=== PATIENT | male | born 1935 | race Caucasian/White ===

== ENCOUNTER 2024-01-14 15:30 | Emergency (ER) | payer MEDICARE, BC, SELFPAY ==
[2024-01-14 15:50] VITALS: BP 167/81; PULSE 73; RESP 18; TEMP 36.9; O2SAT 99; BMI 22.8
--- NOTE | 2024-01-14 16:00 | EDNOTE_ITS ---
ED General RME/HPI General Chief complaint: General Adult/Misc Complain Stated complaint: BLEEDING FROM FACIAL WOUND S/P SKIN CA REMOVAL Time Seen by Provider: 01/14/24 15:35 Arrival date/time: 01/14/24 15:30 88-year-old male presents to the emergency department today complaints of bleeding from biopsy site right cheek. Limitations: no limitations Related Data Home Medications ?Medication ?Instructions ?Recorded ?Confirmed metoprolol tartrate 100 mg tablet 100 mg PO QDAY 10/13/20 10/13/20 spironolactone 25 1 tab PO QDAY 10/13/20 10/13/20 mg-hydrochlorothiazide 25 mg tablet Previous Rx's ?Medication ?Instructions ?Recorded atorvastatin 20 mg tablet 40 mg (2 x 20 mg) PO QDAY #0 tabs 10/14/20 atorvastatin 40 mg tablet 40 mg PO QPM #30 tabs 10/14/20 clopidogrel 75 mg tablet (Plavix) 75 mg PO QDAY #30 tabs 10/14/20 olmesartan 40 mg tablet 20 mg (1/2 x 40 mg) PO QDAY #0 tabs 10/14/20 Allergies Allergy/AdvReac Type Severity Reaction Status Date / Time No Known Allergies Allergy Verified 01/14/24 15:34 Review of Systems Review of Systems Systems Reviewed: All systems reviewed, normal except as documented Constitutional Constitutional: Reports system reviewed and no additional complaints, except as documented, Denies fever(s) and Denies headache(s) Eyes Eyes: Reports system reviewed and no additional complaints, except as documented and Denies blurry vision ENT Ears, Nose, Mouth, and Throat: Reports system reviewed and no additional complaints, except as documented, Denies headache(s), Denies nasal congestion and Denies nasal discharge Cardiovascular Cardiovascular: Reports system reviewed and no additional complaints, except as documented, Denies chest pain and Denies dyspnea Respiratory Respiratory: Reports system reviewed and no additional complaints, except as documented, Denies chest congestion, Denies cough and Denies dyspnea Gastrointestinal Gastrointestinal: Reports system reviewed and no additional complaints, except as documented and Denies abdominal pain Integumentary/Breasts Skin/Breast: Reports system reviewed and no additional complaints, except as documented, Denies rash and Reports other (Bleeding from biopsy site) Neurologic Neurologic: Reports system reviewed and no additional complaints, except as documented, Reports as per HPI and Denies headache(s) Past Medical History Past Medical History CARDIAC: Positive Hypercholesterolemia and Hypertension; Negative Congestive Heart Failure RESPIRATORY: Negative Chronic Obstructive Pulmonary Disease (COPD) GENITOURINARY: Negative Renal Disease ENDOCRINE: Negative Diabetes Mellitus Type 1 or Diabetes Mellitus Type 2 Surgical History SURGICAL: 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 Social History SMOKING STATUS: Never smoker ED Exam General Limitations: Present no limitations General appearance: Present alert and in no apparent distress Head Head exam: Present atraumatic Eye Eye exam: Present normal appearance, PERRL and EOMI; Absent conjunctival i njection ENT ENT exam: Present normal exam, normal oropharynx and mucous membranes moist Neck Neck exam: Present normal inspection, full ROM and trachea midline Chest Chest inspection: Present normal inspection and symmetric chest wall rise Respiratory Respiratory exam: Present normal lung sounds bilaterally Cardiovascular Cardiovascular exam: Present regular rate, normal rhythm and normal heart sounds Abdominal Exam Abdominal exam: Present soft and normal bowel sounds Extremities Exam Extremities exam: Present normal inspection and full ROM Back Exam Back exam: Present normal inspection and full ROM Neurological Exam Neurological exam: Present alert, oriented X3, CN II-XII intact, normal gait and reflexes normal; Absent motor sensory deficit Psychiatric Psychiatric exam: Present normal affect and normal mood Skin Skin exam: Present warm, dry and other (Sutures in place right cheek bleeding) Course Quality Measures none Vital Signs Vital signs: Vital Signs Temperature 98.5 F 01/14/24 15:50 Pulse Rate 73 01/14/24 15:50 Respiratory Rate 18 01/14/24 15:50 Blood Pressure 167/81 H 01/14/24 15:50 Pulse Oximetry (%) 99 01/14/24 15:50 Oxygen Delivery Method Room Air 01/14/24 15:50 O2 saturation 99% room air within normal limits [facility] Patient data External records reviewed:: [facility] previous records Clinical information provided by:: patient Social determinants that could affect healthcare access:: none Patient has the following chronic illnesses:: None How is presenting disease/condition affected by chronic disease/condition?: no chronic disease Evaluation data The following diagnostics were reviewed and interpreted by me:: other (specify) (N/A) Lab and/or radiology exams considered but not ordered:: Consider not ordered Interpretation Summary: N/A Medications Medications considered but not ordered:: No meds Medication administrations:: No meds Consultations Consultation(s) initiated? (list below): No Diagnosis Differential Diagnosis ED Complaint MDM: Postop bleeding, laceration, abrasion Most likely diagnosis given after review of the tests above:: Postop bleeding Admission Indicated Admission indicated?: not indicated Explain why admission is indicated or not indicated:: No criteria Admission Request Was there a request for admission?: No Disposition Plan Disposition Plan: Discharge Discharge Attestation Discharge Attestation: The patient and all family members were given an opportunity to ask questions and understood the discharge instructions. Discharge instructions specifically effects, indications for sooner follow up or return to the emergency department, and the expected course of current diagnosis. Patient condition: Stable Medical Decision Making MDM Narrative MDM Narrative: 88-year-old male presents to the emergency department today complaints of bleeding from biopsy site right cheek. Patient well-appearing patient does not appear ill or toxic patient does have walker tures in place to his right cheek patient reports biopsy being completed. Patient concerns that there is bleeding Surgicel applied to the site dressing applied at time of discharge no bleeding Please follow up with your primary care doctor in the next 24-48hrs for any worsening symptoms return here immediately Differential Diagnosis Differential Diagnosis: Postop bleeding, laceration, abrasion Medical Records Medical records reviewed: Yes I reviewed the patient's medical records. Discharge Plan Plan Patient Disposition: HOME (Self Care) Disposition Comment: Stable Prescriptions/Referrals Prescriptions/Med Rec: No Action metoprolol tartrate 100 mg tablet 100 mg PO QDAY Patient Comments: TAKE 1 TABLET BY MOUTH ONCE DAILY spironolacton-hydrochlorothiaz 25-25 mg tablet 1 tab PO QDAY Patient Comments: TAKE 1 TABLET BY MOUTH ONCE DAILY FOR 90 DAYS clopidogrel [Plavix] 75 mg tablet 75 mg PO QDAY Qty: 30 0RF atorvastatin 40 mg tablet 40 mg PO QPM Qty: 30 0RF atorvastatin 20 mg tablet 40 mg PO QDAY Qty: 0 0RF Patient Comments: TAKE 1 TABLET BY MOUTH ONCE DAILY olmesartan 40 mg tablet 20 mg PO QDAY Qty: 0 0RF Patient Comments: TAKE 1 TABLET BY MOUTH ONCE DAILY FOR 90 DAYS Problem List Clinical Impression: Post-op bleeding Patient/Caregiver Discharge Instructions Additional Instructions: Please follow up with your primary care doctor in the next 24-48hrs for any worsening symptoms return here immediately Print Language: Citizen Of [place] Stand Alone Forms: Destiny Award Info., Patient Portal Info Letter BAYLEE/LI Supervising Physician BAYLEE/LI Supervising Physician: Dr santana
== END 2024-01-14 17:45 | disposition home or self-care (01) ==
PROVIDERS: Emergency Provider Emergency Medicine; PCP Internal Medicine
DX: L76.22 Postprocedural hemorrhage of skin and subcutaneous tissue following other procedure (principal); Y83.8 Other surgical procedures as the cause of abnormal reaction of the patient, or of later complication, without mention of misadventure at the time of the procedure
CPT/HCPCS: 99282

== ENCOUNTER → 2024-05-01 | Outpatient (CLI) | payer MEDICARE, BC, SELFPAY ==
--- NOTE | 2024-05-01 11:01 | EKG_ITS ---
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
== END | disposition home or self-care (01) ==
LOC: COPL 10:33 → SEKG 10:46
PROVIDERS: PCP Internal Medicine; Referring Provider Student in an Organized Health Care Education/Training Program; Visit Provider Student in an Organized Health Care Education/Training Program
DX: Z01.818 Encounter for other preprocedural examination (principal); H25.811 Combined forms of age-related cataract, right eye
CPT/HCPCS: 93005

== ENCOUNTER → 2024-11-13 | Outpatient (CLI) | payer MEDICARE, BC, SELFPAY ==
[2024-11-13 10:29] LABS: Basophils # (Auto) 0.0 Thou/mm3 (0.0-0.2); Basophils % (Auto) 1 % (0-2.5); Eosinophils # (Auto) 0.3 Thou/mm3 (0.0-0.5); Eosinophils % (Auto) 6 % (0-10); Hematocrit 37.8 % (41.0-53.0); Hemoglobin 13.2 g/dL (13.5-16.0); Immature Granulocytes Auto 0.02 Thou/mm3 (0.00-0.00); Lymphocytes # (Auto) 1.4 Thou/mm3 (1.0-4.8); Lymphocytes % (Auto) 24 % (10-50); Mean Corpuscular HGB Conc 34.9 g/dl (31.0-37.0); Mean Corpuscular Hemoglobin 35.8 pg (25.0-35.0); Mean Corpuscular Volume 102 fL (80-100); Monocytes # (Auto) 1.1 Thou/mm3 (0.0-0.8); Monocytes % (Auto) 19 % (0-12); Neutrophils # (Auto) 3.0 Thou/mm3 (1.8-7.7); Neutrophils % (Auto) 50 % (37-80); Nucleated Red Blood Cell # 0.00 Thou/mm3 (0.00-0.00); Nucleated Red Blood Cell % 0 /100 WBC (0); Platelet Count 171 Thou/mm3 (140-440); RDW Standard Deviation 43.4 fL (35.1-43.9); Red Blood Count 3.69 Miln/mm3 (4.50-5.90); White Blood Count 5.9 Thou/mm3 (3.8-10.6)
[2024-11-13 10:45] LABS: Glucose Estimated Average 108 mg/dL (80-131); Hemoglobin A1C 5.4 % Hgb (4.8-6.0)
[2024-11-13 10:50] LABS: Vitamin D 25 Hydroxy Total 43.6 ng/mL (7.3-40.2)
[2024-11-13 10:54] LABS: Alanine Aminotransferase 14 U/L (10-49); Albumin, Serum 4.1 gm/dL (3.4-4.8); Albumin/Globulin Ratio 1.6 (1.2-2.2); Alkaline Phosphatase 87 U/L (46-116); Anion Gap 7 (7-16); Aspartate Amino Transferase 27 U/L (0-34); BUN/Creatinine Ratio 12 Ratio (12-20); Bilirubin,Total 1.5 mg/dL (0.3-1.2); Blood Urea Nitrogen 16 mg/dL (9-23); Calcium 10.0 mg/dL (8.3-10.6); Calcium (Corrected) 10.0 mg/dL (8.5-10.1); Carbon Dioxide 31.6 mMol/L (20.0-31.0); Cardiac Risk Estimate 2.1 RATIO (4.0-6.7); Chloride 98 mMol/L (98-107); Cholesterol 140 mg/dL (132-200); Creatinine (Component) 1.3 mg/dL (0.6-1.3); Free T4 (Free Thyroxine) 1.09 ng/dL (0.89-1.76); Globulin 2.6 gm/dL (2.3-3.5); Glucose 148 mg/dL (74-106); HDL Cholesterol 68 mg/dL (40-60); LDL Cholesterol,Calculated 56 mg/dL (0-130); Osmolality,Calculated 278 (275-295); Potassium 4.4 mMol/L (3.4-5.1); Sodium 137 mMol/L (136-145); Thyroid Stimulating Hormone 2.08 uIU/mL (0.55-4.78); Total Protein 6.7 gm/dL (5.7-8.2); Triglycerides 78 mg/dL (30-150); eGFR 53 See Note
== END | disposition home or self-care (01) ==
LOC: COPL 09:53
PROVIDERS: PCP Internal Medicine; Referring Provider Internal Medicine; Visit Provider Internal Medicine
DX: I11.0 Hypertensive heart disease with heart failure (principal); E11.9 Type 2 diabetes mellitus without complications; E55.9 Vitamin D deficiency, unspecified; E78.2 Mixed hyperlipidemia; E03.9 Hypothyroidism, unspecified
CPT/HCPCS: 36415; 80053; 80061; 82306; 83036; 84439; 84443; 85025

== ENCOUNTER 2024-11-23 14:00 | Emergency (ER) | payer MEDICARE, BC, SELFPAY ==
[2024-11-23 14:02] VITALS: PULSE 100; RESP 20; O2SAT 98; BMI 26.1
[2024-11-23 14:09] VITALS: BP 139/61; PULSE 63; RESP 16; TEMP 36.9; O2SAT 98
--- NOTE | 2024-11-23 14:25 | XR_ITS ---
Examination: CT cervical spine without contrast 2-D sagittal reconstructions 2-D coronal reconstructions 3-D reconstructions. Exam date and time:November 23, 2024, 1442 hours INDICATIONS: Patient fell today with injury to the neck, neck pain CTDI:vol (mGy) 14.4 DLP: (mGycm) 320 Technique: Multiple 2 mm axial sections of the cervical spine have been obtained. The coronal and sagittal reconstructions have been obtained. 3-D reconstructions have been obtained. Low dose protocols were performed. One or more of the following dose reduction techniques were used; automated exposure control, adjustment of the mA and/or KV according to patient size, use of iterative reconstruction technique. Findings: Axial sections demonstrate intact base of the skull. C1 exhibit satisfactory relationship to the odontoid. No acute cervical vertebral body fracture seen. Alignment posterior spinous processes satisfactory. Impression: No acute cervical fracture.
--- NOTE | 2024-11-23 14:25 | XR_ITS ---
Examination: CT brain head without contrast. 2-D sagittal coronal reconstructions Date and time of exam:November 23, 2024, 1442 hours, comparison October 13, 2020 INDICATIONS: Patient fell today with injury to the head, head pain CTDI: vol (mGy):51.2 DLP: (mGycm):1062 Technique: Multiple CT axial sections of the brain have been obtained, 5 mm slice thickness. Contrast has not been administered. 2-D sagittal, coronal reconstructions have been obtained Low dose protocols were performed. One or more of the following dose reduction techniques were used; automated exposure control, adjustment of the mA and/or KV according to patient size, use of iterative reconstruction technique. Findings: No significant ventricular enlargement. Intra-axial or extra-axial hemorrhage density is not seen. No mass effect or midline shift Basal cisterns are not remarkable. Fourth ventricle is midline. Cranial vault intact. Impression: Negative for acute hemorrhage, mass effect or midline shift
--- NOTE | 2024-11-23 15:27 | PD.EDFALL ---
ED Fall Injury RME/HPI General Chief Complaint: Fall Stated Complaint: GROUND LEVEL FALL, SKIN TEARS TO ARMS Time Seen by Provider: 11/23/24 14:09 Source: patient Arrival date/time: 11/23/24 14:00 89-year-old male with a history of hyperlipidemia, hypertension, on blood thinners presents to the emergency room with a chief complaint of a ground-level fall where he injured his head and his bilateral arms. Mode of arrival: ambulatory Limitations: no limitations Related Data Home Medications ?Medication ?Instructions ?Recorded ?Confirmed metoprolol tartrate 100 mg tablet 100 mg PO QDAY 10/13/20 10/13/20 spironolactone 25 1 tab PO QDAY 10/13/20 10/13/20 mg-hydrochlorothiazide 25 mg tablet Previous Rx's ?Medication ?Instructions ?Recorded atorvastatin 20 mg tablet 40 mg (2 x 20 mg) PO QDAY #0 tabs 10/14/20 atorvastatin 40 mg tablet 40 mg PO QPM #30 tabs 10/14/20 clopidogrel 75 mg tablet (Plavix) 75 mg PO QDAY #30 tabs 10/14/20 olmesartan 40 mg tablet 20 mg (1/2 x 40 mg) PO QDAY #0 tabs 10/14/20 acetaminophen 325 mg capsule 650 mg (2 x 325 mg) PO QID PRN 11/23/24 fever or pain 7 days #30 caps cephalexin 500 mg capsule 500 mg PO BID 7 days #14 caps 11/23/24 Allergies Allergy/AdvReac Type Severity Reaction Status Date / Time No Known Allergies Allergy Verified 11/23/24 14:05 Review of Systems Review of Systems Systems Reviewed: All systems reviewed, normal except as documented Constitutional Constitutional: Reports system reviewed and no additional complaints, except as documented, Denies fatigue, Denies fever(s), Denies headache(s) and Denies weakness Eyes Eyes: Reports system reviewed and no additional complaints, except as documented, Denies blurry vision and Denies change in vision ENT Ears, Nose, Mouth, and Throat: Reports system reviewed and no additional complaints, except as documented, Denies otalgia, Denies headache(s), Denies nasal congestion, Denies throat swelling and Denies vertigo Cardiovascular Cardiovascular: Reports system reviewed and no additional complaints, except as documented, Denies chest pain, Denies dyspnea and Denies dyspnea on exertion Respiratory Respiratory: Reports system reviewed and no additional complaints, except as documented, Denies chest congestion, Denies cough, Denies dyspnea, Denies dyspnea on exertion and Denies wheezing Gastrointestinal Gastrointestinal: Reports system reviewed and no additional complaints, except as documented, Denies abdominal pain, Denies cramping, Denies nausea and Denies vomiting Genitourinary Genitourinary: Reports system reviewed and no additional complaints, except as documented, Denies dysuria and Denies hematuria Musculoskeletal Musculoskeletal: Reports system reviewed and no additional complaints, except as documented and Denies back pain Integumentary/Breasts Skin/Breast: Reports system reviewed and no additional complaints, except as documented and Denies wounds Neurologic Neurologic: Reports system reviewed and no additional complaints, except as documented, Denies confusion, Denies headache(s), Denies lack of coordination, Denies vertigo and Denies weakness Psychiatric Psychiatric: Reports system reviewed and no additional complaints, except as documented, Denies anxiety, Denies confusion, Denies depression, Denies paranoia, Denies suicidal ideation and Denies tactile hallucinations Endocrine Endocrine: Reports system reviewed and no additional complaints, except as documented and Denies fatigue Hematologic/Lymphatic Hematologic/Lymphatic: Reports system reviewed and no additional complaints, except as documented and Denies lymphadenopathy Allergic/Immunologic Allergic/Immunologic: Reports system reviewed and no additional complaints, except as documented, Denies throat swelling, Denies urticaria and Denies wheezing ED Exam General Limitations: Present no limitations General appearance: Present alert and in no apparent distress Head Head exam: Present atraumatic Eye Eye exam: Present normal appearance, PERRL and EOMI ENT ENT exam: Present normal exam, normal oropharynx and mucous membranes moist Neck Neck exam: Present normal inspection, full ROM and trachea midline Chest Chest inspection: Present normal inspection and symmetric chest wall rise Respiratory Respiratory exam: Present normal lung sounds bilaterally Cardiovascular Cardiovascular exam: Present regular rate, normal rhythm and normal heart sounds Abdominal Exam Abdominal exam: Present soft and normal bowel sounds Extremities Exam Extremities exam: Present normal inspection and full ROM Expanded Upper Extremity Exam Shoulder exam: Present normal inspection Arm exam: Present tenderness, swelling and other (Bilateral skin tears of both arms) Elbow exam: Present normal inspection and tenderness Forearm/Wrist exam: Present normal inspection Hand exam: Present normal inspection Vascular exam: Normal capillary refill Back Exam Back exam: Present normal inspection and full ROM Neurological Exam Neurological exam: Present alert, oriented X3 and CN II-XII intact Psychiatric Psychiatric exam: Present normal affect and normal mood Skin Skin exam: Present warm, dry, intact and normal color Course Quality Measures none Orders Category Date Time Status CT cervical spine wo con Stat Exams 11/23/24 14:[address] head/brain wo con Stat Exams 11/23/24 14:25 Completed XR elbow comp RT min 3V Stat Exams 11/23/24 15:52 Completed XR wrist comp RT min 3V Stat Exams 11/23/24 15:52 Completed TET,DIP/PERT AC (Adult)-Tdap [Boostrix Adult (Tdap) Med 11/23/24 16:45 Discontinued Vacc] 0.5 ml IMI .ONCE ONE Vital Signs Vital signs: Vital Signs Temperature 98.4 F 11/23/24 14:09 Pulse Rate 63 11/23/24 14:09 Respiratory Rate 16 11/23/24 14:09 Blood Pressure 139/61 H 11/23/24 14:09 Pulse Oximetry (%) 98 11/23/24 14:09 Oxygen Delivery Method Room Air 11/23/24 14:09 Fall MDM Narrative MDM Narrative:: 89-year-old male with a history of hyperlipidemia, hypertension, on blood thinners presents to the emergency room with a chief complaint of a ground-level fall where he injured his head and his bilateral arms. Patient is hemodynamically stable and in no apparent distress Physical examination shows bilateral arm skin tears. The skin tears were closed and approximated using Steri-Strips. The patient was also educated to return in 2 days for wound recheck. A dressing was then placed over the Steri-Strips. A CT of the head and brain was completed and was negative for any acute findings. CT of the cervical spine was negative for any acute findings. An x-ray of the elbow and wrist was completed and was also negative for any acute findings Patient was discharged and educated to follow-up with primary care provider in the next 24 to 48 hours and return to the emergency room for any evidence of worsening signs or symptoms Patient data External records reviewed:: [facility] previous records Clinical information provided by:: patient Social determinants that could affect healthcare access:: none Patient has the following chronic illnesses:: No chronic illness How is presenting disease/condition affected by chronic disease/condition?: no chronic disease Evaluation data The following diagnostics were reviewed and interpreted by me:: lab results and radiology exam(s) Lab and/or radiology exams considered but not ordered:: Labs and radiology exams considered and ordered Interpretation Summary: CT head and brain-no acute findings CT cervical spine-no acute findings X-ray of the elbow-no acute findings X-ray of the wrist-no acute finding Medications / Prescriptions Medications or Prescriptions considered but not ordered:: Medication given Medication administrations:: Medication Administration History Discontinued Medications Diphtheria/Tetanus/Acell Pertussis (Diphth,Pertuss(Acell),Tet Vac 0.5 Ml Syr- Adult) 0.5 ml IMi .ONCE ONE Stop: 11/23/24 16:46 Last Admin: 11/23/24 17:35 Dose: 0.5 ml Documented By: Medication given Consultations Consultation(s) initiated? (list below): No Diagnosis Fall Differential Diagnosis: fracture of wrist and other (Bilateral arm skin tears/closed head injury) Most likely diagnosis given after review of the tests above:: Bilateral arm skin tear/closed head injury Admission Indicated Admission indicated?: not indicated Admission Request Was there a request for admission?: No Disposition Plan Disposition Plan: Discharge Discharge Attestation Discharge Attestation: The patient and all family members were given an opportunity to ask questions and understood the discharge instructions. Discharge instructions specifically effects, indications for sooner follow up or return to the emergency department, and the expected course of current diagnosis. Patient condition: Stable Discharge Plan Plan Patient Disposition: HOME (Self Care) Discharge Disposition comment: Stable Prescriptions/Referrals Prescriptions/Med Rec: New cephalexin 500 mg capsule 500 mg PO BID 7 Days Qty: 14 0RF acetaminophen 325 mg capsule 650 mg PO QID PRN (Reason: fever or pain) 7 Days Qty: 30 0RF No Action metoprolol tartrate 100 mg tablet 100 mg PO QDAY Patient Comments: TAKE 1 TABLET BY MOUTH ONCE DAILY spironolacton-hydrochlorothiaz 25-25 mg tablet 1 tab PO QDAY Patient Comments: TAKE 1 TABLET BY MOUTH ONCE DAILY FOR 90 DAYS clopidogrel [Plavix] 75 mg tablet 75 mg PO QDAY Qty: 30 0RF atorvastatin 40 mg tablet 40 mg PO QPM Qty: 30 0RF atorvastatin 20 mg tablet 40 mg PO QDAY Qty: 0 0RF Patient Comments: TAKE 1 TABLET BY MOUTH ONCE DAILY olmesartan 40 mg tablet 20 mg PO QDAY Qty: 0 0RF Patient Comments: TAKE 1 TABLET BY MOUTH ONCE DAILY FOR 90 DAYS Referrals: Buttan,Massimo, MD [Primary Care Provider, Internal Medicine] - In 1 week Problem List Clinical Impression: Skin tear of right upper extremity, Skin tear of left upper extremity, Closed head injury Patient/Caregiver Discharge Instructions Education Materials: ED Head Injury (Adult) Additional Instructions: Please follow-up with your primary care provider in the next [address] of your head and brain was negative for any acute findings. Please keep your wounds clean and dry for the next 24 hours afterwards to clean it with soap and water. You can also return in 2 days for wound recheck. For any evidence of worsening signs or symptoms return to the emergency room immediately Print Language: [place] Stand Alone Forms: Destiny Award Info., Patient Portal Info Letter PA/MOLD OPERATOR Supervising Physician PA/LI Supervising Physician: Dr. Lawson
--- NOTE | 2024-11-23 15:52 | XR_ITS ---
Examination: Right elbow 3 views Technique: Elbow AP, oblique, lateral 3 views Exam date and time: November 23, 2024, 1556 hrs. Indications: Right elbow pain today. Findings: Air density in the soft tissue adjacent to the lateral posterior side of the elbow adjacent to the radius, clinical correlation advised Mild diffuse elbow osteoarthritis No fracture. Impression: No acute fracture No cortical bone destruction, consider ultrasound soft tissue elbow follow-up as clinically warranted to assess for infection
--- NOTE | 2024-11-23 15:52 | XR_ITS ---
Examination: Wrist, right 3 views Technique: Wrist AP, oblique, lateral 3 views Date and time of exam: November 23, 2024, 1556 hrs. Indications: Ground-level fall today with into the wrist, wrist pain. Findings: Significant osteoarthritis first carpometacarpal joint No acute fracture No dislocation Impression: No acute fracture
[2024-11-23] MEDS: DIPHTH,PERTUSS(ACELL),TET VAC 0.5 ML SYR- ADULT IMi (17:35)
--- NOTE | 2024-11-23 19:00 | PC.NURSE ---
Patient noted to have multiple large skin tears to right arm, upper right arm near elbow partially de-gloved, skin able to be partially approximated and steri stripped. Patient left forearm multiple skin tears, steri strips applied. Patient tolerated wound care well. Patient verbalized wound care instructions and will return to ED in 2 days for re eval of wounds.
== END 2024-11-23 19:12 | disposition home or self-care (01) ==
PROVIDERS: Emergency Provider Family Medicine; PCP Internal Medicine
DX: S41.111A Laceration without foreign body of right upper arm, initial encounter (principal); S41.112A Laceration without foreign body of left upper arm, initial encounter; S09.90XA Unspecified injury of head, initial encounter; W18.30XA Fall on same level, unspecified, initial encounter; Z79.01 Long term (current) use of anticoagulants; I10 Essential (primary) hypertension; E78.5 Hyperlipidemia, unspecified
CPT/HCPCS: 70450; 72125; 73080; 73110; 90471; 90715; 99284

== ENCOUNTER 2024-11-26 08:59 | Emergency (ER) | payer MEDICARE, BC, SELFPAY ==
[2024-11-26 09:19] VITALS: BP 125/71; PULSE 72; RESP 18; TEMP 36.9; O2SAT 98; BMI 29.6
--- NOTE | 2024-11-26 09:29 | EDNOTE_ITS ---
<Statement entered by Corie Crews MD - 11/27/24 16:04> As co-signing physician, I was present and available for consult prn. I concur with the plan and care as documented by the midlevel provider. ED General RME/HPI General Chief complaint: General Adult/Misc Complain Stated complaint: GET DRESSING OFF BUE Time Seen by Provider: 11/26/24 09:01 Source: patient Arrival date/time: 11/26/24 08:59 Mode of arrival: ambulatory Limitations: no limitations Related Data Home Medications ?Medication ?Instructions ?Recorded ?Confirmed metoprolol tartrate 100 mg tablet 100 mg PO QDAY 10/1310/13/20 spironolactone 25 1 tab PO QDAY 10/13/2010/13 mg-hydrochlorothiazide 25 mg tablet Previous Rx's ?Medication ?Instructions ?Recorded atorvastatin 20 mg tablet 40 mg (2 x 20 mg) PO QDAY #0 tabs 10/14/20 atorvastatin 40 mg tablet 40 mg PO QPM #30 tabs clopidogrel 75 mg tablet (Plavix) 75 mg PO QDAY #30 ta bs 10/14/20 olmesartan 40 mg tablet 20 mg (1/2 x 40 mg) PO QDAY #0 tabs 10/14/20 acetaminophen 325 mg capsule 650 mg (2 x 325 mg) PO QI D PRN 11/23/24 fever or pain 7 days #30 caps cephalexin 500 mg capsule 500 mg PO BID 7 days #14 cap s 11/23/24 Allergies Allergy/AdvReac Type Severity Reaction Status Date / Time No Known Allergies Allergy Verified 11/26/24 09:01 Review of Systems Review of Systems Systems Reviewed: All systems reviewed, normal except as documented Constitutional Constitutional: Reports system reviewed and no additional complaints, except as documented, Denies fatigue, Denies fever(s), Denies headache(s) and Denies weakness Eyes Eyes: Reports system reviewed and no additional complaints, except as documented, Denies blurry vision and Denies change in vision ENT Ears, Nose, Mouth, and Throat: Reports system reviewed and no additional complaints, except as documented, Denies otalgia, Denies headache(s), Denies nasal congestion, Denies throat swelling and Denies vertigo Cardiovascular Cardiovascular: Reports system reviewed and no additional complaints, except as documented, Denies chest pain, Denies dyspnea and Denies dyspnea on exertion Respiratory Respiratory: Reports system reviewed and no additional complaints, except as documented, Denies chest congestion, Denies cough, Denies dyspnea, Denies dyspnea on exertion and Denies wheezing Gastrointestinal Gastrointestinal: Reports system reviewed and no additional complaints, except as documented, Denies abdominal pain, Denies cramping, Denies nausea and Denies vomiting Genitourinary Genitourinary: Reports system reviewed and no additional complaints, except as documented, Denies dysuria and Denies hematuria Musculoskeletal Musculoskeletal: Reports system reviewed and no additional complaints, except as documented and Denies back pain Integumentary/Breasts Skin/Breast: Reports system reviewed and no additional complaints, except as documented and Denies wounds Neurologic Neurologic: Reports system reviewed and no additional complaints, except as documented, Denies confusion, Denies headache(s), Denies lack of coordination, Denies vertigo and Denies weakness Psychiatric Psychiatric: Reports system reviewed and no additional complaints, except as documented, Denies anxiety, Denies confusion, Denies depression, Denies paranoia, Denies suicidal ideation and Denies tactile hallucinations Endocrine Endocrine: Reports system reviewed and no additional complaints, except as documented and Denies fatigue Hematologic/Lymphatic Hematologic/Lymphatic: Reports system reviewed and no additional complaints, except as documented and Denies lymphadenopathy Allergic/Immunologic Allergic/Immunologic: Reports system reviewed and no additional complaints, except as documented, Denies throat swelling, Denies urticaria and Denies wheezing Past Medical History Past Medical History CARDIAC: Positive Hypercholesterolemia and Hypertension; Negative Congestive Heart Failure RESPIRATORY: Negative Chronic Obstructive Pulmonary Disease (COPD) GENITOURINARY: Negative Renal Disease ENDOCRINE: Negative Diabetes Mellitus Type 1 or Diabetes Mellitus Type 2 Surgical History SURGICAL: 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 Social History SMOKING STATUS: Never smoker ED Exam General Limitations: Present no limitations General appearance: Present alert and in no apparent distress Head Head exam: Present atraumatic Eye Eye exam: Present normal appearance, PERRL and EOMI ENT ENT exam: Present normal exam, normal oropharynx and mucous membranes moist Neck Neck exam: Present normal inspection, full ROM and trachea midline Chest Chest inspection: Present normal inspection and symmetric chest wall rise Respiratory Respiratory exam: Present normal lung sounds bilaterally Cardiovascular Cardiovascular exam: Present regular rate, normal rhythm and normal heart sounds Abdominal Exam Abdominal exam: Present soft and normal bowel sounds Extremities Exam Extremities exam: Present normal inspection and full ROM Back Exam Back exam: Present normal inspection and full ROM Neurological Exam Neurological exam: Present alert, oriented X3 and CN II-XII intact Psychiatric Psychiatric exam: Present normal affect and normal mood Skin Skin exam: Present warm, dry, intact and normal color Course Quality Measures none Orders Category Date Time Status Wound Care X1 Care 11/26/24 09:24 Completed Vital Signs Vital signs: Vital Signs Temperature 98.5 F 11/26/24 09:19 Pulse Rate 72 11/26/24 09:19 Respiratory Rate 18 11/26/24 09:19 Blood Pressure 125/71 11/26/24 09:19 Pulse Oximetry (%) 98 11/26/24 09:19 Oxygen Delivery Method Room Air 11/26/24 09:19 Discharge Plan Plan Patient Disposition: HOME (Self Care) Discharge Disposition comment: Stable Prescriptions/Referrals Prescriptions/Med Rec: No Action metoprolol tartrate 100 mg tablet 100 mg PO QDAY Patient Comments: TAKE 1 TABLET BY MOUTH ONCE DAILY spironolacton-hydrochlorothiaz 25-25 mg tablet 1 tab PO QDAY Patient Comments: TAKE 1 TABLET BY MOUTH ONCE DAILY FOR 90 DAYS clopidogrel [Plavix] 75 mg tablet 75 mg PO QDAY Qty: 30 0RF atorvastatin 40 mg tablet 40 mg PO QPM Qty: 30 0RF atorvastatin 20 mg tablet 40 mg PO QDAY Qty: 0 0RF Patient Comments: TAKE 1 TABLET BY MOUTH ONCE DAILY olmesartan 40 mg tablet 20 mg PO QDAY Qty: 0 0RF Patient Comments: TAKE 1 TABLET BY MOUTH ONCE DAILY FOR 90 DAYS cephalexin 500 mg capsule 500 mg PO BID 7 Days Qty: 14 0RF acetaminophen 325 mg capsule 650 mg PO QID PRN (Reason: fever or pain) 7 Days Qty: 30 0RF Referrals: Massimo Dillon MD [Primary Care Provider, Internal Medicine] - In 1 week Problem List Clinical Impression: Skin tear of right upper extremity, Skin tear of left upper extremity Patient/Caregiver Discharge Instructions Education Materials: ED Laceration, Extremity: Skin Glue Additional Instructions: Please follow-up with your primary care provider in the next 24 to 48 hours Your wound is healing appropriately and a new dressing was placed. You can return in 3 days for another wound recheck and for new dressings. For any evidence of worsening signs or symptoms return to the emergency room immediately Print Language: Mohawk Stand Alone Forms: Destiny Award Info., Work/School Release, Patient Portal Info Letter PA/LI Supervising Physician BAYLEE/LI Supervising Physician: Dr. Guzman MDM Narrative MDM hospital course (for use when minimal MDM required): 89-year-old male with a history of hyperlipidemia, hypertension presents to the emergency room for a wound recheck on his bilateral upper extremities. Patient had skin tears from his forearms to his elbows and was instructed to return for a wound recheck and to redress the injury. Patient is hemodynamically stable and in no apparent distress. Patient presents today for a wound recheck and to redress his wounds on his bilateral upper extremities. Patient had multiple skin tears from his elbows down to his forearms. I looked at the wounds and they are healing appropriately there are no signs of infection. The wound was cleaned and a new dressing was applied Patient was discharged and educated to follow-up with primary care provider in the next 24 to 48 hours and return to the emergency room for any evidence of worsening signs or symptoms Clinical Information Provided by: none Medical Records reviewed None Meds/Rx considered, not ordered None Labs/Rad/Tests considered, not ordered None Chronic Illness/Social Conditions which may negatively complicate care or outcome(s)-explain: None or not applicable EKG EKG not done Labs Labs: none Imaging Imaging interpretation: none Medication Administration(s) none Diagnosis Differential Diagnosis ED Complaint MDM: Wound recheck Diagnoses ruled out and/or further discussions: Wound recheck
== END 2024-11-26 10:34 | disposition home or self-care (01) ==
PROVIDERS: Emergency Provider Emergency Medicine; PCP Internal Medicine
DX: S41.111D Laceration without foreign body of right upper arm, subsequent encounter (principal); S41.112D Laceration without foreign body of left upper arm, subsequent encounter; X58.XXXD Exposure to other specified factors, subsequent encounter
CPT/HCPCS: 99284

== ENCOUNTER 2024-11-29 10:45 | Emergency (ER) | payer MEDICARE, BC, SELFPAY ==
[2024-11-29 10:45] VITALS: BMI 25.8
[2024-11-29 11:00] VITALS: BP 126/69; PULSE 83; RESP 19; TEMP 36.8; O2SAT 98
--- NOTE | 2024-11-29 11:40 | EDNOTE_ITS ---
Upper Extremity Injury RME/HPI General Chief Complaint: Extremity Injury, Upper Stated Complaint: RIGHT ARM WOUND RECHECHK AND RE BANDAGE Time Seen by Provider: 11/29/24 10:52 Arrival date/time: 11/29/24 10:45 RME / HPI RME / HPI narrative: 89-year-old male patient was brought in by family for evaluation regarding wound recheck. Patient sustained multiple skin tear to the bilateral forearm he happened 6 days ago. Initially came to's and Steri-Strip applied. Today came in for wound recheck and change of dressing. Patient is denying any fever. Complained of mild swelling to the left upper extremity. Patient denies any other complaints no medication was taken prior to ER visit patient is taking aspirin daily. Related Data Home Medications ?Medication ?Instructions ?Recorded ?Confirmed metoprolol tartrate 100 mg tablet 100 mg PO QDAY 10/1310/13/20 spironolactone 25 1 tab PO QDAY 10/13/2010/13 mg-hydrochlorothiazide 25 mg tablet Previous Rx's ?Medication ?Instructions ?Recorded atorvastatin 20 mg tablet 40 mg (2 x 20 mg) PO QDAY #0 tabs 10/14/20 atorvastatin 40 mg tablet 40 mg PO QPM #30 tabs clopidogrel 75 mg tablet (Plavix) 75 mg PO QDAY #30 ta bs 10/14/20 olmesartan 40 mg tablet 20 mg (1/2 x 40 mg) PO QDAY #0 tabs 10/14/20 acetaminophen 325 mg capsule 650 mg (2 x 325 mg) PO QI D PRN 11/23/24 fever or pain 7 days #30 caps cephalexin 500 mg capsule 500 mg PO BID 7 days #14 cap s 11/23/24 cephalexin 500 mg capsule 500 mg PO Q8H 7 days #21 cap s 11/29/24 Allergies Allergy/AdvReac Type Severity Reaction Status Date / Time No Known Allergies Allergy Verified 11/29/24 10:47 Review of Systems Review of Systems Narrative Review of Systems: Review of system reviewed and within normal limits except mentioned in HPI ED Exam Narrative Physical exam: VITAL SIGNS: Reviewed. GENERAL APPEARANCE: Alert and interactive, follows commands, no acute distress, HEAD AND FACE: Non-traumatic. ENT: PERRL, pink conjunctivitis, eyelid no trauma, Mucous membrane moist. NECK: Supple, nontender, no nuchal rigidity. CHEST: No tenderness, no crepitus, no paradoxical movement, no retractions. LUNGS: Clear, well ventilated, symmetric, no rales, no wheezing, no ronchi, no stridor, good breath sounds bilaterally. HEART: Regular rate, regular rhythm, no murmur, no gallops. ABDOMEN: Soft, positive bowel sounds, nondistended, no guarding, nontender, no rebound, no masses, RECTAL: Deferred. GENITAL: Deferred. NEUROLOGICAL: Gross motor function intact sensory function intact, Appropriate for age. MUSCULOSKELETAL: low back nontender, full range of motion. EXTREMITIES: Bilateral forearm skin tear, with Steri-Strip intact, mild swelling noted, radial and ulnar pulses bilateral +2, none foul-smelling, mild redness noted, full range of motion. SKIN: Color pink, dry, no rash, no lacerations, no abrasions, no contusions. LYMPHATICS: Deferred. Course Quality Measures none Vital Signs Vital signs: Vital Signs Temperature 98.2 F 11/29/24 11:00 Pulse Rate 83 11/29/24 11:00 Respiratory Rate 19 11/29/24 11:00 Blood Pressure 126/69 11/29/24 11:00 Pulse Oximetry (%) 98 11/29/24 11:00 Oxygen Delivery Method Room Air 11/29/24 11:00 Extremity Injury MDM Narrative MDM Narrative:: 89-year-old male patient was brought in by family for evaluation regarding wound recheck. Patient sustained multiple skin tear to the bilateral forearm he happened 6 days ago. Initially came to's and Steri-Strip applied. Today came in for wound recheck and change of dressing. Patient is denying any fever. Complained of mild swelling to the left upper extremity. Patient denies any other complaints no medication was taken prior to ER visit patient is taking aspirin daily. Wound recheck by me, I noticed mild redness however I did not notice any puslike drainage. Dressing applied, I did not remove the sterile strip. Patient will be given Keflex for prophylactic. Patient was advised to change the dressing every 2 days or return to emergency room for worsening of symptoms. Patient is stable for discharge home imaging or workup is not needed at this time. Patient data External records reviewed:: None Clinical information provided by:: patient Social determinants that could affect healthcare access:: none Patient has the following chronic illnesses:: Hypertension How is presenting disease/condition affected by chronic disease/condition?: uneffected by Evaluation data The following diagnostics were reviewed and interpreted by me:: other (specify) (None) Lab and/or radiology exams considered but not ordered:: None Interpretation Summary: None Medications / Prescriptions Medications or Prescriptions considered but not ordered:: None Medication administrations:: None Consultations Consultation(s) initiated? (list below): No Diagnosis Upper Extremity Injury Differential Diagnosis: other (Wound recheck, history of skin tear bilateral upper extremity,) Most likely diagnosis given after review of the tests above:: Wound recheck, history of bilateral forearm skin tear Admission Indicated Admission indicated?: not indicated Admission Request Was there a request for admission?: No Disposition Plan Disposition Plan: Discharge Discharge Attestation Discharge Attestation: The patient was given an opportunity to ask questions and understood the discharge instructions. Discharge instructions specifically effects, indications for sooner follow up or return to the emergency department, and the expected course of current diagnosis. Patient condition: Stable Discharge Plan Plan Patient Disposition: HOME (Self Care) Discharge Disposition comment: Stable Prescriptions/Referrals Prescriptions/Med Rec: New cephalexin 500 mg capsule 500 mg PO Q8H 7 Days Qty: 21 0RF No Action metoprolol tartrate 100 mg tablet 100 mg PO QDAY Patient Comments: TAKE 1 TABLET BY MOUTH ONCE DAILY spironolacton-hydrochlorothiaz 25-25 mg tablet 1 tab PO QDAY Patient Comments: TAKE 1 TABLET BY MOUTH ONCE DAILY FOR 90 DAYS clopidogrel [Plavix] 75 mg tablet 75 mg PO QDAY Qty: 30 0RF atorvastatin 40 mg tablet 40 mg PO QPM Qty: 30 0RF atorvastatin 20 mg tablet 40 mg PO QDAY Qty: 0 0RF Patient Comments: TAKE 1 TABLET BY MOUTH ONCE DAILY olmesartan 40 mg tablet 20 mg PO QDAY Qty: 0 0RF Patient Comments: TAKE 1 TABLET BY MOUTH ONCE DAILY FOR 90 DAYS cephalexin 500 mg capsule 500 mg PO BID 7 Days Qty: 14 0RF acetaminophen 325 mg capsule 650 mg PO QID PRN (Reason: fever or pain) 7 Days Qty: 30 0RF Problem List Clinical Impression: Skin tear of right upper extremity, Skin tear of left upper extremity, Encounter for wound re-check Patient/Caregiver Discharge Instructions Discharge Activity: activity as tolerated Education Materials: ED Laceration: All Closures, ED Scar Tips to Minimize Additional Instructions: Thank you for the opportunity for serving you today. You are stable for discharged . You are advised to: Follow-up with your PCP in 1 to 2 days Return to ED for worsening of symptoms Increase oral fluids Take medication as prescribed You can change the dressing every 2 days as needed Print Language: Romanian Stand Alone Forms: Destiny Award Info., Patient Portal Info Letter PA/STEWARD/[employer] Supervising Physician PA/LI Supervising Physician: MD Ivette
== END 2024-11-29 11:58 | disposition home or self-care (01) ==
LOC: SERX 13:27
PROVIDERS: Emergency Provider Family Medicine
DX: S51.812D Laceration without foreign body of left forearm, subsequent encounter (principal); S51.811D Laceration without foreign body of right forearm, subsequent encounter; X58.XXXD Exposure to other specified factors, subsequent encounter
CPT/HCPCS: 99281

== ENCOUNTER 2024-12-07 09:08 | Emergency (ER) | payer MEDICARE, BC, SELFPAY ==
[2024-12-07 09:18] VITALS: BP 137/73; PULSE 78; RESP 19; TEMP 36.8; O2SAT 96; BMI 26.9
--- NOTE | 2024-12-07 10:01 | PD.EDWOUND ---
ED Wound/Laceration-RME/HPI General Chief Complaint: Wound Recheck / Suture Removal Stated Complaint: BILATERAL ARM WOUND RECHECK Time Seen by Provider: 12/07/24 09:25 Arrival date/time: 12/07/24 09:08 89-year-old male presents to the emergency department for dressing changes patient initially was seen 11/26 for multiple skin tears bilateral upper extremities Limitations: no limitations Related Data Home Medications ?Medication ?Instructions ?Recorded ?Confirmed metoprolol tartrate 100 mg tablet 100 mg PO QDAY 10/13/20 10/13/20 spironolactone 25 1 tab PO QDAY 10/13/20 10/13/20 mg-hydrochlorothiazide 25 mg tablet Previous Rx's ?Medication ?Instructions ?Recorded atorvastatin 20 mg tablet 40 mg (2 x 20 mg) PO QDAY #0 tabs 10/14/20 atorvastatin 40 mg tablet 40 mg PO QPM #30 tabs 10/14/20 clopidogrel 75 mg tablet (Plavix) 75 mg PO QDAY #30 tabs 10/14/20 olmesartan 40 mg tablet 20 mg (1/2 x 40 mg) PO QDAY #0 tabs 10/14/20 cephalexin 500 mg capsule 500 mg PO BID 7 days #14 caps 12/07/24 Allergies Allergy/AdvReac Type Severity Reaction Status Date / Time No Known Allergies Allergy Verified 12/07/24 09:10 Review of Systems Review of Systems Systems Reviewed: All systems reviewed, normal except as documented Constitutional Constitutional: Reports system reviewed and no additional complaints, except as documented, Denies fever(s) and Denies headache(s) Eyes Eyes: Reports system reviewed and no additional complaints, except as documented and Denies blurry vision ENT Ears, Nose, Mouth, and Throat: Reports system reviewed and no additional complaints, except as documented, Denies headache(s), Denies nasal congestion and Denies nasal discharge Cardiovascular Cardiovascular: Reports system reviewed and no additional complaints, except as documented, Denies chest pain and Denies dyspnea Respiratory Respiratory: Reports system reviewed and no additional complaints, except as documented, Denies chest congestion, Denies cough and Denies dyspnea Gastrointestinal Gastrointestinal: Reports system reviewed and no additional complaints, except as documented and Denies abdominal pain Integumentary/Breasts Skin/Breast: Reports system reviewed and no additional complaints, except as documented, Denies rash and Reports wounds (Dressings in place bilateral arms) Neurologic Neurologic: Reports system reviewed and no additional complaints, except as documented, Reports as per HPI and Denies headache(s) Past Medical History Past Medical History CARDIAC: Positive Hypercholesterolemia and Hypertension; Negative Congestive Heart Failure RESPIRATORY: Negative Chronic Obstructive Pulmonary Disease (COPD) GENITOURINARY: Negative Renal Disease ENDOCRINE: Negative Diabetes Mellitus Type 1 or Diabetes Mellitus Type 2 Surgical History SURGICAL: 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 Social History SMOKING STATUS: Never smoker ED Exam General Limitations: Present no limitations General appearance: Present alert and in no apparent distress Head Head exam: Present atraumatic Eye Eye exam: Present normal appearance, PERRL and EOMI ENT ENT exam: Present normal exam, normal oropharynx and mucous membranes moist Neck Neck exam: Present normal inspection, full ROM and trachea midline Chest Chest inspection: Present normal inspection and symmetric chest wall rise Respiratory Respiratory exam: Present normal lung sounds bilaterally Cardiovascular Cardiovascular exam: Present regular rate, normal rhythm and normal heart sounds Abdominal Exam Abdominal exam: Present soft and normal bowel sounds Extremities Exam Extremities exam: Present normal inspection and full ROM Back Exam Back exam: Present normal inspection and full ROM Neurological Exam Neurological exam: Present alert, oriented X3 and CN II-XII intact Psychiatric Psychiatric exam: Present normal affect and normal mood Skin Skin exam: Present warm, dry and other (Steri-Strips, dressings in place bilateral arms) Course Quality Measures none Vital Signs Vital signs: Vital Signs Temperature 98.2 F 12/07/24 09:18 Pulse Rate 78 12/07/24 09:18 Respiratory Rate 19 12/07/24 09:18 Blood Pressure 137/73 H 12/07/24 09:18 Pulse Oximetry (%) 96 12/07/24 09:18 Oxygen Delivery Method Room Air 12/07/24 09:18 Wound / Laceration MDM Narrative MDM Narrative:: 89-year-old male presents to the emergency department for dressing changes patient initially was seen 11/26 for multiple skin tears bilateral upper extremities On exam patient well-appearing patient does not appear look toxic no acute distress Steri-Strips are removed Patient was given a course of antibiotics as patient does have erythema to the right arm Patient discharged home in no distress to follow-up with primary care doctor in the next 24 to 48 hours and for any worsening symptoms to return to the ER immediately Patient data External records reviewed:: [facility] previous records Clinical information provided by:: patient Social determinants that could affect healthcare access:: none Patient has the following chronic illnesses:: None How is presenting disease/condition affected by chronic disease/condition?: no chronic disease Evaluation data The following diagnostics were reviewed and interpreted by me:: other (specify) Lab and/or radiology exams considered but not ordered:: Considered not ordered Interpretation Summary: N/A Medications / Prescriptions Medications or Prescriptions considered but not ordered:: Given Medication administrations:: Given Consultations Consultation(s) initiated? (list below): No Diagnosis Wound Differential Diagnosis: laceration, abscess and abrasion Most likely diagnosis given after review of the tests above:: Skin tears bilateral arms Admission Indicated Admission indicated?: not indicated Admission Request Was there a request for admission?: No Disposition Plan Disposition Plan: Discharge Discharge Attestation Discharge Attestation: The patient and all family members were given an opportunity to ask questions and understood the discharge instructions. Discharge instructions specifically effects, indications for sooner follow up or return to the emergency department, and the expected course of current diagnosis. Patient condition: Stable Discharge Plan Plan Patient Disposition: HOME (Self Care) Discharge Disposition comment: Stable Prescriptions/Referrals Prescriptions/Med Rec: New cephalexin 500 mg capsule 500 mg PO BID 7 Days Qty: 14 0RF No Action metoprolol tartrate 100 mg tablet 100 mg PO QDAY Patient Comments: TAKE 1 TABLET BY MOUTH ONCE DAILY spironolacton-hydrochlorothiaz 25-25 mg tablet 1 tab PO QDAY Patient Comments: TAKE 1 TABLET BY MOUTH ONCE DAILY FOR 90 DAYS clopidogrel [Plavix] 75 mg tablet 75 mg PO QDAY Qty: 30 0RF atorvastatin 40 mg tablet 40 mg PO QPM Qty: 30 0RF atorvastatin 20 mg tablet 40 mg PO QDAY Qty: 0 0RF Patient Comments: TAKE 1 TABLET BY MOUTH ONCE DAILY olmesartan 40 mg tablet 20 mg PO QDAY Qty: 0 0RF Patient Comments: TAKE 1 TABLET BY MOUTH ONCE DAILY FOR 90 DAYS Problem List Clinical Impression: Encounter for wound re-check Patient/Caregiver Discharge Instructions Education Materials: Wound Care Additional Instructions: Please follow up with your primary care doctor in the next 24-48hrs for any worsening symptoms return here immediately Print Language: Iranian Stand Alone Forms: Destiny Award Info., Patient Portal Info Letter PA/[employer] Supervising Physician PA/[employer] Supervising Physician: Dr. schwartz
== END 2024-12-07 10:21 | disposition home or self-care (01) ==
LOC: SERX 10:13
PROVIDERS: Emergency Provider Nurse Practitioner Primary Care; PCP Internal Medicine
DX: Z48.02 Encounter for removal of sutures (principal)
CPT/HCPCS: 99281